=== PATIENT | female | born 1965 | race African-American/Black ===

== ENCOUNTER 2023-12-22 12:50 | Emergency (ER) | payer SELFPAY ==
[~2023-12-22] VITALS: Ht 154.9 cm; Wt 82.0 kg
[2023-12-22 13:07] VITALS: O2SAT 100
[2023-12-22] MEDS ORDERED: CYCL10TA21 MT (14:38)
[2023-12-22] MEDS ORDERED: IBUP-2030 MT (14:38)
[2023-12-22 14:48] VITALS: TEMP 98.2
[2023-12-22] MEDS: IBUPROFEN 800MG TABLET PO ONE (14:56)
[2023-12-22] MEDS: CYCLOBENZAPRINE 10MG TABLET PO ONE (14:56)
[2023-12-22 14:57] VITALS: BP 132/89; PULSE 72; RESP 16
[2023-12-22] MEDS: IBUPROFEN 400MG TABLET PO NR (14:57)
== END 2023-12-22 14:55 | disposition home or self-care (01) ==
LOC: ER 12:50
DX: S16.1XXA Strain of muscle, fascia and tendon at neck level, initial encounter (principal); S39.012A Strain of muscle, fascia and tendon of lower back, initial encounter; Z98.890 Other specified postprocedural states; V98.8XXA Other specified transport accidents, initial encounter; Y93.89 Activity, other specified; Y92.89 Other specified places as the place of occurrence of the external cause; Y99.8 Other external cause status
CPT/HCPCS: 99284